=== PATIENT | male | born 1990 | race Caucasian/White ===

== ENCOUNTER 2017-06-15 10:16 | Day surgery (SDC) | payer OTHER ==
[~2017-06-15] VITALS: Ht 175.3 cm; Wt 68.0 kg
[~2017-06-15 10:16] MED LIST: HUMALOG100 UNIT/1 SC; LANTUS 10100 UNITS/ SC; LYRICA75 MG PO; OMEPRAZOLE40 M1 PO
[2017-06-15 10:40] VITALS: BP 106/73
[2017-06-15 14:57] VITALS: BP 114/68
[2017-06-15 15:33] VITALS: BP 107/70
== END 2017-06-15 15:49 | disposition home or self-care (01) ==
LOC: SDC 10:16
PROVIDERS: Ophthalmology
DX: E10.3593 Type 1 diabetes mellitus with proliferative diabetic retinopathy without macular edema, bilateral (principal); Z79.4 Long term (current) use of insulin; F17.210 Nicotine dependence, cigarettes, uncomplicated
CPT/HCPCS: 82948; 93005; J2250; J2405; J2765; J3010